=== PATIENT | female | born 2000 | race Caucasian/White ===

== ENCOUNTER 2024-05-20 06:49 | Emergency (ER) | payer OTHER, MEDICAID ==
[~2024-05-20] VITALS: Ht 157.5 cm; Wt 86.0 kg
[2024-05-20 06:51] VITALS: O2SAT 100
[2024-05-20 07:26] LABS: BASOPHILS % 0.8 % (0.0-2.0); EOSINOPHILS % 6.6 % (0.0-5.0); HEMATOCRIT. 40.8 % (36.0-48.0); HEMOGLOBIN. 13.6 g/dL (12.0-16.0); LYMPHOCYTES % 30.8 % (20.0-50.0); MEAN CORPUSCULAR HEMOGLOBIN 29.9 pg (28.0-32.0); MEAN CORPUSCULAR HGB CONC 33.4 g/dL (31.0-37.0); MEAN CORPUSCULAR VOLUME 89.6 fL (81.0-99.0); MEAN PLATELET VOLUME 7.9 fl (7.4-10.4); MONOCYTES % 5.1 % (2.0-8.0); NEUTROPHILS % 56.7 % (40.0-76.0); PLATELET 333 x1000/uL (130-400); RED BLOOD CELL COUNT 4.55 mill/uL (4.2-5.4); RED CELL DISTRIBUTION WIDTH 13.3 % (11.6-14.6); WHITE BLOOD COUNT 7.2 x1000/uL (4.5-11.0)
[2024-05-20 07:45] LABS: CHLORIDE 107 mEq/L (98-107); POTASSIUM 3.8 mEq/L (3.5-5.1); SODIUM 141 mEq/L (136-145)
[2024-05-20 07:46] LABS: CARBON DIOXIDE 25 mEq/L (21-32)
[2024-05-20 07:47] LABS: CALCIUM 9.7 mg/dL (8.7-10.4)
[2024-05-20 07:51] LABS: CREATININE 0.7 mg/dL (0.6-1.0); GLUCOSE 143 mg/dL (70-105)
[2024-05-20 07:52] LABS: UREA NITROGEN BLOOD 11 mg/dL (9-23)
[2024-05-20 07:53] LABS: HCG SCREEN NEGATIVE
[2024-05-20 08:29] LABS: ALANINE AMINOTRANSFERASE 17 IU/L (10-49); ALBUMIN 4.4 g/dL (3.2-4.8); ASPARTATE AMINOTRANSFERASE 19 IU/L (<34); BILIRUBIN DIRECT 0.2 mg/dL (<=3.0); BILIRUBIN TOTAL 0.6 mg/dL (0.1-1.0)
[2024-05-20 08:30] LABS: PROTEIN TOTAL 7.3 g/dL (6.0-8.3)
[2024-05-20] MEDS: KETOROLAC 30MG/ML VIAL IM ONE (08:37)
[2024-05-20] MEDS: ONDANSETRON 4MG ODT PO ONE (08:37)
[2024-05-20] MEDS ORDERED: MAG355OR21 MT (09:06)
[2024-05-20] MEDS ORDERED: NAPR-681 MT (09:06)
[2024-05-20] MEDS ORDERED: ONDA-239 PO (09:06)
[2024-05-20] MEDS ORDERED: FAMO20TA8 MT (09:06)
[2024-05-20 09:19] VITALS: BP 131/87; PULSE 78; RESP 16; TEMP 36.9; O2SAT 100
== END 2024-05-20 09:19 | disposition home or self-care (01) ==
LOC: ER 06:49
DX: R10.10 Upper abdominal pain, unspecified (principal); K80.20 Calculus of gallbladder without cholecystitis without obstruction
CPT/HCPCS: 80076; 80048; 84703; 83690; 85025; 36415; 76705; 96372; 99285; Q0162; J1885; Z7610